=== PATIENT | male | born 1950 | race Caucasian/White ===

== ENCOUNTER 2017-04-22 06:07 | Inpatient (IN) ==
[2017-04-22] MEDS ORDERED: Vancomycin 1,750 MG in D5% in Water 500 ML IVPB ONE ×2 (06:26→20:00)
[2017-04-22] MEDS ORDERED: Albuterol 2.5 MG/3 ML NEBULIZER IH ONE (06:26)
[2017-04-22] MEDS ORDERED: CeFAZolin Pre 2,000 MG/100 ML 2,000 MG/100 ML BAG IVPB ONE (06:26)
[2017-04-22] MEDS ORDERED: Heparin 1,000 UNITS/500 mL NS 500 ML ONE (07:14)
--- NOTE | 2017-04-22 07:15 | Anesthesia Evaluation PreOp ---
Date of Encounter: 04/22/17 Time of Encounter: 07:13 - Past History Planned Operation: Right CEA Cardiac History: CHF, HTN, Hyperlipidemia, Other (CAD) Pulmonary History: Smoker, Pack/yr (1.5 ppd) ASSOCIATE CHEMIST History: Denies Any Significant HX Other Medical History: Renal (Stones), Diabetes Type II, Other (RA) Anesthesia History: No Prior Anesthetic Complications, Past Anesthesia (Appy) Alcohol Use: rarely Drug use: none Medications and Allergies Budesonide/Formoterol 160/4.5 [Symbicort 160/4.5] 1 puff IH BIDR 03/10/17 [ History] GlipiZIDE [Glipizide Xl] 10 mg PO DAILY 03/10/17 [History] Isosorbide DInitrate [Isosorbide Dinitrate] 10 mg PO DAILY 03/10/17 [History] Lisinopril [Zestril] 20 mg PO DAILY 03/10/17 [History] Metoprolol [Lopressor] 100 mg PO BID 03/10/17 [History] Spironolactone [Aldactone] 50 mg PO DAILY 03/10/17 [History] Terazosin [Hytrin] 10 mg PO HS 03/10/17 [History] Tiotropium [Spiriva] 18 mcg IH 0700 03/10/17 [History] Aspirin 81 mg PO DAILY 03/11/17 [Rx] Atorvastatin [Lipitor] 80 mg PO HS #30 tablet 03/11/17 [Rx] Clopidogrel [Plavix] 75 mg PO DAILY #30 tab 03/11/17 [Rx] Metformin HCl [Metformin HCl ER] 500 mg PO BID #0 03/11/17 [Rx] Nicotine Patch [Nicoderm] 21 mg TD DAILY #30 03/11/17 [Rx] Nitroglycerin 0.4 mg SL ONCE #30 tab.subl 03/11/17 [Rx] 3 Allergy/AdvReac Type Severity Reaction Status Date / Time Sulfa (Sulfonamide Allergy Fever Verified 01/22/17 14:12 Antibiotics) - Meds/Allergy Pre-op Review Medications Reviewed: Yes Allergies Reviewed: Yes Beta Blockers on Current Med List: Yes If Beta Blockers taken, Date/Time (Last Dose taken): 05:30 04/22/17 Anesthesia Results - Labs Laboratory Tests 04/20/17 04/20/17 04/20/17 11:53 11:53 11:53 WBC 11.6 H Hgb 13.3 Hct 39.9 Plt Count 214 INR 0.9 Sodium 139 Potassium 5.0 H Chloride 106 Carbon Dioxide 25 BUN 17 Creatinine 1.14 Name: Chino Garcia Date of Study: 03/10/2017 LEFT HEART CATH PTCA Single Major Vessel - circumflex PTCA/Stent (JOSEPHINE) Single Major Vessel - RCA Impressions: There is severe two vessel coronary artery disease. The left ventricle is normal and has normal contractility EF 60% Patient had successful PTCA/Drug-Eluting Stent placement in the mid RCA. Patient had successful PTCA in the mid Circ. Acceptable intermediate risk for intermediate risk vascular surgery If able, would delay carotid surgery for 1 month (needs DAPT x 1 year). Echocardiogram Date of Study: 01/22/2017 Impressions: Technically suboptimal due to poor sound wave transmission. Overall LV function grossly normal. LVEF 60-65%. Cannot exclude subtle wall motion abnormalities due to technical limitations of study. Mild concentric LVH. Trace aortic regurgitation. No pulmonary hypertension. Valves not well visualized. Left Ventricular Wall Motion: Rest Echo Findings All wall segments showed normal motion. Findings: Study Quality * Technically sub-optimal due to COPD. ECG Findings * Normal sinus rhythm. Left Ventricle * LVEF 60-65%. * Normal LV chamber size and function. * Overall LV function appears grossly normal. Cannot exclude subtle wall motion abnormalities due to techinical limitations of study - Imaging EKG: image reviewed (SINUS BRADYCARDIA WITH FIRST DEGREE AV BLOCK NONSPECIFIC ST & T-WAVE ABNORMALITY) Anesthesia Exam O2 Sat Height 1.73 m Height 1.73 m Height 1.73 m Weight 113.398 kg Weight 113.398 kg Weight 113.398 kg O2 Sat by Pulse Oximetry 97 O2 Sat by Pulse Oximetry 97 Vital Signs Temp Pulse Resp BP Pulse Ox 97.7 F 62 18 156/61 97 04/22/17 06:32 04/22/17 06:32 04/22/17 06:32 04/22/17 06:32 04/22/17 06:32 Blood glucose: 97 Height: 5'8'' Weight: 250# NPO (# of Hours): > 8 hrs Pain Scale: 0 Pain Scale Used: Numeric (1 - 10) - HEENT Pupil (Motor): Pupils equal, EOMI Mallampati: III Teeth: Poor dentition Oral Opening: Greater than 3 - ASSOCIATE CHEMIST ASSOCIATE CHEMIST Motor: Normal RUE, Normal LUE, Normal RLE, Normal LLE, Normal Face ASSOCIATE CHEMIST Sensory: Normal: RUE, LUE, RLE, LLE, Face - Cardiac Rhythm: Regular Murmur: None JVD: No Carotid Bruit: No - Pulmonary Breath Sounds: bilateral Clear Respiratory Effort: Symmetrical Anesthesia Assess/Plan ASA Score: 4 Modified [place] Scale for Level of Consciousness: Cooperative, oriented, and tranquil Anesthetic Plan: General Autologous Blood: Yes Monitoring Plan: Standard Monitors, A-Line Recovery Plan: PACU
[2017-04-22] MEDS ORDERED: Heparin 1,000 UNITS/500 mL NS 1,500 ML ONE (07:21)
[2017-04-22] MEDS ORDERED: Bupivacaine-MPF 0.25% 10 ML VIAL ONE (07:21)
[2017-04-22] MEDS ORDERED: Protamine Sulfate 50 MG/5 ML VIAL IVP ONE (07:21)
[2017-04-22] MEDS ORDERED: *HR* Propofol 200 MG/20 ML VIAL IVP ONE (07:28)
[2017-04-22] MEDS ORDERED: *HR* Midazolam HCl 5 MG/5 ML VIAL IVP ONE (07:28)
[2017-04-22] MEDS ORDERED: Ketamine *HR* 500 MG/10 ML MDV ONE (07:28)
[2017-04-22] MEDS ORDERED: Acetaminophen IV 1,000 MG/100 ML INFUS..BTL ONE (07:28)
[2017-04-22] MEDS ORDERED: Lidocaine -MPF 2% 2 ML VIAL ONE (07:30)
[2017-04-22] MEDS ORDERED: *HR* Succinylcholine 200 MG/10 ML VIAL IVP ONE (07:33)
[2017-04-22] MEDS ORDERED: Dexmedetomidine HCl 200 MCG/50 ML MLS IVC ONE (07:33)
--- NOTE | 2017-04-22 07:33 | History & Physical Report ---
Date of Encounter: 04/22/17 Time of Encounter: 07:28 24 Hour HP Update - Instructions Instructions: If the History and Physical is less than 30 days old and was completed prior to A.M. admission and or procedure and has NOT been updated on calendar day of procedure please complete this update prior to performing procedure. - Update Patient reports changes in Medical Condition: No Changes in examination, assessment, or condition: No Changes in Medication: No Preop tests/diagnostics Reviewed: Yes Surgery Remains Indicated: Yes Consent for Planned Operative Procedure(s) Verified: Yes - Pre-Operative Checklist Preoperative Checklist Indicated: Yes Prophylactic Antibiotic Ordered: Yes (vancomycin due to MRSA risk) Home Medications Include Beta Grady: Yes Beta Grady Taken Today (Day of Surgery): Yes Beta Grady Taken Yesterday (Day Prior to Surgery): Yes Is VTE Prophylaxis Indicated?: Yes
[2017-04-22] MEDS: Ringers Solution, Lactated 1,000 ML IVC SCH ×2 (07:35→09:49)
[2017-04-22] MEDS ORDERED: Lidocaine -MPF 4% 5 ML AMPUL ONE (07:37)
[2017-04-22] MEDS ORDERED: Dexamethasone 4 MG/ML VIAL ONE (08:11)
[2017-04-22] MEDS ORDERED: Ondansetron 4 MG/2 ML VIAL ONE (08:11)
[2017-04-22] MEDS ORDERED: *HR* Phenylephrine 10 MG/ML VIAL ONE (08:16)
[2017-04-22] MEDS ORDERED: *HR* Magnesium Sulfate 1 GM/2 ML VIAL ONE (08:39)
[2017-04-22] MEDS ORDERED: Plasma-Lyte A (PH 7.4) 1,000 ML IVC SCH (08:45)
[2017-04-22] MEDS ORDERED: *HR* Heparin 5,000 UNIT/ML VIAL ONE ×2 (09:10→09:58)
[2017-04-22] MEDS ORDERED: *HR* HYDROmorphone (PF) 1 MG/ML SYRINGE IVP PRN (09:51)
[2017-04-22] MEDS ORDERED: *HR* Labetalol 20 MG/4 ML SYRINGE IVP PRN ×2 (09:51→12:41)
[2017-04-22] MEDS ORDERED: *HR* Promethazine 25 MG/ML VIAL IVP PRN (09:51)
--- NOTE | 2017-04-22 11:13 | Operative Note ---
Date of procedure: 04/22/17 Pre-op diagnosis: 80-99% Right internal carotid artery stenosis Post-op diagnosis: same Procedure: Right carotid endarterectomy with hemashield patch angioplasty Complications: None Anesthesia: MORRISA Surgeon: Wes Leon Estimated blood loss (cc): 100 Specimen: Right carotid plaque Condition: stable Disposition: PACU Procedure in Detail: Indications: The patient is a 66 year old male who was found to have an 80-99% right internal carotid artery stenosis by CT angiography. He also has a chronic left internal carotid artery dissection. A right carotid endarterectomy was recommended to reduce his risk of stroke. Procedure: The patient was identified in the preoperative area. The risks, benefits, and alternatives of the procedure were discussed and all questions were answered. The patient was then taken to the operating room and placed in supine position on the operating table. After induction of general endotracheal anesthesia, the patient was cleaned and draped in normal sterile fashion. A longitudinal incision was made anterior to his right sternocleidomastoid muscle. Hemostasis was obtained via electrocautery. Through a process of blunt , sharp, and electrocautery dissection, the platysma was traversed. The jugular vein was identified and dissected along the medial border The facial vein was dissected circumferentially. It was then clamped, divided, tied off with a 2-0 silk suture ligature. The jugular vein was retracted, exposing the carotid bifurcation. The patient received 2000 units of heparin intravenously at this time. Proximal dissection of the common and external carotid arteries were performed circumferentially. Dissection of the internal carotid was performed circumferentially. Vessels loops were passed around the internal and external carotid and an umbilical tape was passed from the common carotid artery. The patient received additional 3000 units of heparin intravenously. After waiting adequate time for the heparin to circulate, the vessels were occluded and a longitudinal arteriotomy was made into the common carotid artery extending into the internal carotid beyond the plaque. Vigorous pulsatile retrograde flow was noted from the internal carotid artery upon release of the loop. Given the evidence of adequate retrograde circulation, the decision to not place a shunt in the tortuous internal carotid artery was made. A dental [place] was used to perform a standard endarterectomy. Proximal and distal endpoints were inspected. No elevated flaps were noted. A Hemashield patch was cut to fit the defect and sutured in place with running 6 -0 Prolene. Prior to completing the closure, each vessel was flushed and then reoccluded. Heparinized saline was infused into the lumen. The patch was completed. Flow was restored in the external carotid artery, followed the common carotid artery, lastly the internal carotid artery was opened. A low resistance arterialized signal was present within the internal carotid artery beyond the patch. Thrombin and Gelfoam were used to aid in hemostasis. Meticulous hemostasis was obtained throughout the wound with electrocautery. Platelet rich and platelet poor plasma were infused into the wounds. The sternocleidomastoid was reapproximated with interrupted 3-0 Vicryl. Platelet rich and platelet poor plasma were infused into the wound. A TLS drain was brought through a separate stab incision and sutured in place with 0 silk suture. The platysma was reapproximated with running 3-0 Vicryl. Local anesthetic was infused in the skin. A 3-0 Monocryl was used to reapproximate his skin. Sterile dressing was applied. The patient was then extubated, taken to the recovery room in stable condition.
--- NOTE | 2017-04-22 11:58 | Anesthesia Evaluation Post Op ---
Date of Encounter: 04/22/17 Time of Encounter: 11:58 - Vital Signs Vital Signs: Vital Signs/O2 Sat, Most Current Temp Pulse Resp BP Pulse Ox 98.2 F 58 16 119/52 96 04/22/17 11:46 04/22/17 11:46 04/22/17 11:46 04/22/17 11:46 04/22/17 11:46 - Lungs Lungs: Clear Ascult./Percussion - Airway Airway: Non-obstructed - Cardiovascular Regular Rate - Mental Status Mental Status: Alert & Oriented, Answers Appropriately - Pain Pain Scale: 0 Pain Scale used: Numeric (1 - 10) - Nausea Vomiting Nausea Vomiting: Not Present - Hydration Hydration: Ice chips, Alvarez catheter - Discharge PostOp Status: Transfer Patient to floor
[2017-04-22] MEDS ORDERED: Acetaminophen 325 MG TABLET PO PRN (12:41)
[2017-04-22] MEDS ORDERED: Naloxone 0.4 MG/ML INJ IVP PRN (12:41)
[2017-04-22] MEDS ORDERED: D5% in Water 1,000 ML IVC PRN (12:41)
[2017-04-22] MEDS ORDERED: Dextrose Gel 15 GM PO PRN ×2 (12:41)
[2017-04-22] MEDS ORDERED: Furosemide 20 MG TABLET PO PRN (12:41)
[2017-04-22] MEDS ORDERED: *HR* OxyCODONE Immed Rel 5 MG TABLET PO PRN (12:41)
[2017-04-22] MEDS ORDERED: *HR* Dextrose 50 % in Water (Syg) 50 ML SYRINGE IVP PRN (12:41)
[2017-04-22] MEDS ORDERED: Ondansetron 4 MG/2 ML VIAL IVP PRN (12:41)
[2017-04-22] MEDS ORDERED: Nitroglycerin 0.4 MG TAB.SUBL SL PRN (12:41)
[2017-04-22] MEDS ORDERED: *HR* Morphine 2 MG/ML SYRINGE IVP PRN (12:41)
[2017-04-22] MEDS: *HR* Metoprolol 5 MG/5 ML VIAL IVP SCH ×3 (15:03→23:44)
[2017-04-22] MEDS: ceFAZolin 2,000 MG in D5% in Water 100 ML IVPB SCH ×2 (15:04→22:15)
[2017-04-22] MEDS: Insulin LISPRO 300 UNITS/3 ML VIAL SQ SCH ×2 (15:04→17:34)
--- NOTE | 2017-04-22 17:34 | Event Note ---
Date of Encounter: 04/22/17 Time of Encounter: 17:00 The patient is seen and examined in his room. He was seen earlier due to the fact that his TLS drain stopped working. Multiple maneuvers were made to restore function. However, the drain appeared to be clotted. The patient has subcutaneous, nonpulsatile swelling in the right neck. He has no tracheall deviation, no stridor and no swallowing difficulties. His speech is normal and he is tolerating his diet. He remains alert without focal neuologic deficits. The swelling does not appear to have increased during the last few hours. Will continue with elevation of his head and an ice pack to his right neck. Will hold heparin due to bleeding risk.
[2017-04-22] MEDS: Budesonide/Formoterol 160/4.5 MDI IH SCH (20:17)
[2017-04-22] MEDS ORDERED: Insulin LISPRO 300 UNITS/3 ML VIAL SQ SCH (21:00)
[2017-04-23] MEDS: *HR* Metoprolol 5 MG/5 ML VIAL IVP SCH (05:10)
[2017-04-23] MEDS ORDERED: *HR* Heparin 5,000 UNIT/ML VIAL SQ SCH ×2 (06:00)
[2017-04-23] MEDS ORDERED: Tiotropium 18 MCG inhalation IH SCH (07:00)
--- NOTE | 2017-04-23 07:00 | Discharge Summary ---
Date of Encounter: 04/23/17 Time of Encounter: 07:40 - Discharge Diagnosis (1) Carotid stenosis, bilateral Priority: Primary Status: Chronic Comments: The patient is postoperative day #1 after a right carotid endarterectomy. He is alert and comfortable. He has no neurologic deficits. He is tolerating his diet. He has non-pulsatile right neck swelling with expected postoperative ecchymosis due to his clopidogrel. He will be discharged today. He was advised that bruising after the procedure is expected. (2) Tobacco abuse Priority: Secondary Status: Acute Comments: He was counseled regarding smoking cessation. (3) COPD (chronic obstructive pulmonary disease) Priority: Secondary Status: Chronic Qualifiers: COPD type: emphysema Emphysema type: panlobular Qualified Code(s): J43.1 - Panlobular emphysema (4) Diabetes mellitus type 2 in obese Priority: Secondary Status: Chronic (5) Essential hypertension Priority: Secondary Status: Chronic Comments: He was counseled regading atherosclerotic risk factor reduction. (6) Mixed hyperlipidemia Priority: Secondary Status: Chronic (7) Morbid obesity due to excess calories Priority: Secondary Status: Chronic (8) Coronary artery disease involving pilot station heart without angina pectoris Priority: Secondary Status: Chronic Qualifiers: Coronary Disease-Associated Artery/Lesion type: pilot [place] artery Qualified Code(s): I25.10 - Atherosclerotic heart disease of pilot [place] coronary artery without angina pectoris (9) CHF, chronic Priority: Secondary Status: Chronic Comments: The patient has a history of CHF. He did not experience any acute symptoms during this hospitalization. Qualifiers: Congestive heart failure type: diastolic Qualified Code(s): I50.32 - Chronic diastolic (congestive) heart failure - Discharge Medications Prescriptions: Oxycodone HCl/Acetaminophen [Percocet 5-325 mg Tablet] 1 each PO Q6H PRN #25 tablet PRN Reason: postoperative pain Home Medications: Budesonide/Formoterol 160/4.5 [Symbicort 160/4.5] 2 puff IH BIDR 03/10/17 [ History] Isosorbide DInitrate [Isosorbide Dinitrate] 10 mg PO DAILY 03/10/17 [History] Lisinopril [Zestril] 20 mg PO DAILY 03/10/17 [History] Metoprolol [Lopressor] 100 mg PO TID 03/10/17 [History] Spironolactone [Aldactone] 50 mg PO DAILY 03/10/17 [History] Terazosin [Hytrin] 10 mg PO HS 03/10/17 [History] Tiotropium [Spiriva] 18 mcg IH 0700 03/10/17 [History] Aspirin 81 mg PO DAILY 03/11/17 [Rx] Atorvastatin [Lipitor] 80 mg PO HS #30 tablet 03/11/17 [Rx] Clopidogrel [Plavix] 75 mg PO DAILY #30 tab 03/11/17 [Rx] Metformin HCl [Metformin HCl ER] 500 mg PO BID #0 03/11/17 [Rx] Nicotine Patch [Nicoderm] 21 mg TD DAILY #30 03/11/17 [Rx] Nitroglycerin 0.4 mg SL ONCE #30 tab.subl 03/11/17 [Rx] Furosemide [Lasix] 20 mg PO DAILY PRN 04/22/17 [History] GlipiZIDE XL (24 HR) [Glucotrol XL] 10 mg PO BID 04/22/17 [History] Oxycodone HCl/Acetaminophen [Percocet 5-325 mg Tablet] 1 each PO Q6H PRN #25 tablet 04/23/17 [Rx] Allergies/Adverse Reactions: 3 Allergy/AdvReac Type Severity Reaction Status Date / Time Sulfa (Sulfonamide AdvReac Fever Verified 04/22/17 08:16 Antibiotics) Date of admission: 04/22/17 12:25 Primary care physician: Trey Donald MD Procedure(s) Performed: Right carotid endarterectomy Discharging clinician: Wes Leon Anticipated date of discharge: 04/23/17 - Patient Status Disposition: Home, Self-Care Condition: Good Functional capacity at discharge: independent ambulation Overall status at discharge: patient is progressing back to baseline - Discharge Instructions Instructions: Oxycodone/Acetaminophen (By mouth), Carotid Endarterectomy (DC) Follow Up With: Wes Leon MD [Partnered Physician] - 05/31/17 1:00 pm Trey Donald MD [Primary Care Provider] - 04/28/17 10:15 am Additional Instructions: May remove bandage and shower 04/24/17. Wash wound gently and pat to dry. Apply dry gauze to wound as needed if drainage occurs. No driving for [address] Leon at [phone] with questions or concerns. - Diet and Activity Activity: increase activity as tolerated Diet: advance to your usual diet - Hospital Course Hospital course: Mr. Garcia is a 66 year old male who underwent a right carotid endarterectomy on 04/22/17. He tolerated the procedure well. In the postoperative period his drain stopped working and he developed right neck subcutaneous swelling. He had no neurologic changes and no tracheal deviation. On postoperative day #1, his swelling had decreased and he remained neurologically intact. He did developed expected periincisional echymosis due to his plavix use. He was informed that the ecchymosis will likely increase and spread to his chest in the next few days. He was discharged to home in stable condition on postoperative day #1 without complications. Time spent discussing smoking cessation with patient: 3 to 10 minutes - Time Spent with Patient Total time spent providing and/or coordinating discharge services: Exam Vital Signs, Last 4 Hours Temp Pulse Resp BP Pulse Ox 04/23/17 05:11 97.5 F L 67 17 148/76 96 General: Present: Conversant, No Apparent Distress HEENT: Present: Trachea midline, Pupils equal, Other (incision clean, dry and intact wihout erythema or drainage, nonpulsatile right neck swelling with expected ecchymosis) Neck: Absent: JVD, Midline deformity, Tracheal deviation Cardiac: Present: Reg Rate and Rhythm, Normal S1 and S2 Lungs: Present: Normal Breath Sounds Neuro: Present: Alert and responsive, No focal deficits noted, Motor nerves grossly intact, Sensory nerves grossly intact Abdomen: Present: Soft, Non-tender Vascular: Present: Normal capillary refill. Absent: Cyanosis, Edema Skin: Present: No rashes noted on visualized skin - VTE Documentation of Mechanical Device: Intermittent pneumatic compression device
[2017-04-23 07:29] VITALS: BP 105/77
[2017-04-23] MEDS: Insulin LISPRO 300 UNITS/3 ML VIAL SQ SCH ×2 (07:34→12:13)
[2017-04-23] MEDS: Budesonide/Formoterol 160/4.5 MDI IH SCH (07:53)
[2017-04-23] MEDS ORDERED: Metoprolol 100 MG TABLET PO SCH (09:00)
[2017-04-23] MEDS ORDERED: Nicotine 21 MG PATCH.TD24 TD SCH (09:00)
[2017-04-23] MEDS ORDERED: Aspirin 81 MG TAB.CHEW PO SCH (09:00)
[2017-04-23] MEDS ORDERED: Lisinopril 20 MG TABLET PO SCH (09:00)
== END 2017-04-23 14:50 | disposition home or self-care (01) | DRG 37 ==
LOC: SAMDAY 06:07 → 2NNU 12:25
PROVIDERS: ADMIT Surgery; ATTEND Surgery

== ENCOUNTER 2022-05-03 19:47 | Inpatient (IN) ==
[2022-05-03] MEDS ORDERED: Ipratropium/Albuterol Neb 3 ML IH ONE (20:50)
[2022-05-03] MEDS ORDERED: Aspirin 325 MG TABLET PO ONE (20:50)
[2022-05-03] MEDS ORDERED: Nitroglycerin 0.4 MG TAB.SUBL SL PRN (20:50)
[2022-05-03 20:54] LABS: Basophils % 0.2 %; Eosinophils # 0.3 K/mcL (0.0-0.6); Eosinophils % 1.8 %; Hematocrit 30.3 % (37.5-50.1); Hemoglobin 10.1 g/dL (12.9-16.9); Immature Granulocytes % 0.4 % (0-4); Lymphocytes # 2.6 K/mcL (0.6-4.6); Lymphocytes % 18.5 %; Mean Corpuscular HGB Conc 33.3 g/dL (31.6-35.5); Mean Corpuscular Hemoglobin 31.1 pg (28.0-33.3); Mean Corpuscular Volume 93.2 fL (83.0-100.0); Mean Platelet Volume 10.6 fL (9.4-12.4); Monocytes # 1.2 K/mcL (0.0-1.3); Monocytes % 8.4 %; Neutrophils # 10.1 K/mcL (1.6-8.9); Platelet Count 229 K/mcL (140-400); Red Blood Count 3.25 M/mcL (4.19-5.50); Red Cell Distribution Width 13.1 % (11.5-14.5); Segmented Neutrophils % 70.7 %; White Blood Count 14.2 K/mcL (4.3-11.1)
[2022-05-03 21:23] LABS: Calcium 9.1 mg/dL (8.6-10.3); Potassium 3.4 mEq/L (3.5-5.1)
[2022-05-03 21:25] LABS: Troponin I 0.04 ng/mL (< 0.04)
[2022-05-03] MEDS ORDERED: 0.9 % Sodium Chloride 1,500 ML IV ONE (22:02)
[2022-05-03 22:28] LABS: Influenza A PCR Negative (Negative); Influenza B PCR Negative (Negative); Resp. Syncytial Virus PCR Negative (Negative)
[2022-05-03 22:29] LABS: SARS-CoV-2 by PCR (In House) Negative (Negative)
[2022-05-03] MEDS ORDERED: Iopamidol - 370 500 ML MLS IVP ONE (22:46)
[2022-05-03] MEDS ORDERED: *HR* Heparin 5,000 UNIT/ML VIAL IVP ONE (23:11)
[2022-05-03] MEDS ORDERED: *HR* Heparin 5,000 UNIT/ML VIAL IVP PRN ×2 (23:11)
[2022-05-04 00:07] LABS: VBG HCO3 18 mEq/L (21-27); VBG PCO2 42 mmHg (41-51); VBG PH 7.24 pH Units (7.32-7.42); VBG PO2 44 mmHg (25-50)
[2022-05-04 00:22] LABS: Hematocrit 27.7 % (37.5-50.1); Hemoglobin 9.2 g/dL (12.9-16.9); Mean Corpuscular HGB Conc 33.2 g/dL (31.6-35.5); Mean Corpuscular Hemoglobin 31.2 pg (28.0-33.3); Mean Corpuscular Volume 93.9 fL (83.0-100.0); Mean Platelet Volume 10.9 fL (9.4-12.4); Platelet Count 212 K/mcL (140-400); Red Blood Count 2.95 M/mcL (4.19-5.50); Red Cell Distribution Width 13.2 % (11.5-14.5); White Blood Count 13.5 K/mcL (4.3-11.1)
[2022-05-04 00:23] LABS: Heparin anti-factor XA UFH < 0.04 IU/mL (0.30-0.70); INR 0.9; Prothrombin Time 10.4 Seconds (9.4-12.1)
[2022-05-04 00:58] LABS: Adenovirus Not Detected (Not Detect); Bordetella Pertussis Not Detected (Not Detect); Chlamydophila pneumoniae Not Detected (Not Detect); Coronavirus 229E Not Detected (Not Detect); Coronavirus HKU1 Not Detected (Not Detect); Coronavirus NL63 Not Detected (Not Detect); Coronavirus OC43 Not Detected (Not Detect); Human Metapneumovirus Not Detected (Not Detect); Human Rhinovirus/Enterovirus Not Detected (Not Detect); Influenza A Subtype 2009 H1 Not Detected (Not Detect); Influenza B Not Detected (Not Detect); Mycoplasma pneumoniae Not Detected (Not Detect); Parainfluenza Virus 1 Not Detected (Not Detect); Parainfluenza Virus 2 Not Detected (Not Detect); Parainfluenza Virus 3 Not Detected (Not Detect); Parainfluenza Virus 4 Not Detected (Not Detect); Respiratory Syncytial Virus Not Detected (Not Detect); SARS-CoV-2 Not Detected (Not Detect)
[2022-05-04] MEDS ORDERED: Azithromycin 500 MG in 0.9 % Sodium Chloride 250 ML IVPB ONE (00:58)
[2022-05-04] MEDS ORDERED: cefTRIAXone 1,000 MG in 0.9 % Sodium Chloride Mini Bag 100 ML IVPB ONE (00:58)
[2022-05-04] MEDS: Heparin 25,000UNIT/250ML 1/2NS 25,000 UNIT/250 ML IV.SOLN IVC SCH ×2 (02:03→21:00)
[2022-05-04 02:27] LABS: Albumin 3.5 g/dL (3.5-5.7); Albumin/Globulin Ratio 1.5 (1.1-2.2); Bilirubin,Direct 0.1 mg/dL (0.0-0.2); Bilirubin,Indirect 0.3 mg/dL (0.0-1.0); Bilirubin,Total 0.4 mg/dL (0.3-1.0); Globulin 2.3 g/dL (2.4-3.5); Total Protein 5.8 g/dL (6.4-8.9)
[2022-05-04] MEDS ORDERED: Acetaminophen 325 MG TABLET PO PRN (03:13)
[2022-05-04] MEDS ORDERED: Naloxone 0.4 MG/ML INJ IVP PRN (03:13)
[2022-05-04] MEDS ORDERED: *HR* Dextrose 50 % in Water (Syg) 50 ML SYRINGE IVP PRN (03:13)
[2022-05-04] MEDS ORDERED: Ondansetron 4 MG/2 ML VIAL IVP PRN (03:13)
[2022-05-04] MEDS ORDERED: D5% in Water 1,000 ML IVC PRN (03:13)
[2022-05-04] MEDS ORDERED: Dextrose Gel 15 GM/37.5 ML TUBE PO PRN ×2 (03:13)
[2022-05-04] MEDS ORDERED: Albuterol 2.5 MG/3 ML NEBULIZER IH PRN (04:30)
[2022-05-04 04:55] LABS: Basophils % 0.2 %; Eosinophils % 0.3 %; Hematocrit 28.2 % (37.5-50.1); Hemoglobin 9.2 g/dL (12.9-16.9); Immature Granulocytes % 0.3 % (0-4); Lymphocytes # 1.5 K/mcL (0.6-4.6); Lymphocytes % 11.5 %; Mean Corpuscular HGB Conc 32.6 g/dL (31.6-35.5); Mean Corpuscular Hemoglobin 30.9 pg (28.0-33.3); Mean Corpuscular Volume 94.6 fL (83.0-100.0); Mean Platelet Volume 10.9 fL (9.4-12.4); Monocytes # 1.2 K/mcL (0.0-1.3); Monocytes % 9.1 %; Neutrophils # 10.5 K/mcL (1.6-8.9); Platelet Count 221 K/mcL (140-400); Red Blood Count 2.98 M/mcL (4.19-5.50); Red Cell Distribution Width 13.3 % (11.5-14.5); Segmented Neutrophils % 78.6 %; White Blood Count 13.3 K/mcL (4.3-11.1)
[2022-05-04 05:03] LABS: Prothrombin Time 11.4 Seconds (9.4-12.1)
[2022-05-04 05:04] LABS: Heparin anti-factor XA UFH 0.44 IU/mL (0.30-0.70)
[2022-05-04 05:06] LABS: Activated Partial Thrombo Time 61.6 Seconds (26.0-36.0)
[2022-05-04 05:13] LABS: BUN/Creatinine Ratio 18 (6-26); Blood Urea Nitrogen 53 mg/dL (8-23); C-Reactive Protein < 5 mg/L (Less than 10); Calcium 8.3 mg/dL (8.6-10.3); Carbon Dioxide 15 mEq/L (23-29); Chloride 112 mEq/L (98-107); Glucose 128 mg/dL (70-105); Osmolality,Calculated 308 (280-300); Potassium 3.8 mEq/L (3.5-5.1); Sodium 141 mEq/L (136-145)
[2022-05-04 05:39] LABS: Estimated Average Glucose 131 mg/dl; Hemoglobin A1C 6.2 %
[2022-05-04] MEDS: Sodium Bicarbonate 75 MEQ in 0.45 % Sodium Chloride 1,000 ML IVC SCH ×2 (05:45→20:15)
[2022-05-04 05:53] LABS: Bacteria,Urine Few per hpf (None-Few); Bilirubin,Urine Negative (Negative); Blood,Urine Moderate (Negative); Clarity,Urine Clear (Clear); Color,Urine Colorless (Yellow); Glucose,Urine (UA) Normal (Normal); Ketones,Urine Negative (Negative); Leukocyte Esterase,Urine Negative (Negative); Mucus,Urine Few per lpf (None-Few); Nitrite,Urine Negative (Negative); Protein,Urine Trace mg/dL (Neg-Trace); RBC,Urine 0-3 per hpf (0-3); Specific Gravity,Urine 1.007 (1.010-1.025); Squamous Epithelial Cell,Urine Few per hpf (None-Few); Urobilinogen,Urine Normal (Normal); WBC,Urine 0-3 per hpf (0-3)
[2022-05-04] MEDS: Insulin LISPRO 300 UNITS/3 ML VIAL SUBQ SCH ×3 (06:12→18:40)
[2022-05-04] MEDS ORDERED: 0.9 % Sodium Chloride 1,000 ML IVC ONE (08:33)
[2022-05-04] MEDS: Aspirin 81 MG TAB.CHEW PO SCH (08:37)
[2022-05-04] MEDS: Metoprolol 100 MG TABLET PO SCH ×2 (08:37→20:20)
[2022-05-04] MEDS ORDERED: Metoprolol 100 MG TABLET PO SCH (09:00)
[2022-05-04] MEDS ORDERED: Tiotropium 10 INH DOSE IH SCH (10:00)
[2022-05-04] MEDS ORDERED: Ipratropium/Albuterol Neb 3 ML ONE (10:26)
[2022-05-04] MEDS: Budesonide/Formoterol 160/4.5 1 PUFF INH IH SCH ×2 (10:34→20:00)
[2022-05-04] MEDS: Ipratropium/Albuterol Neb 3 ML IH SCH ×5 (10:34→22:45)
[2022-05-04 10:38] LABS: ABG Base Excess -9 mEq/L (-2 to 3); ABG HCO3 17 mEq/L (21-27); ABG Oxygen Saturation 90 % (95-98); ABG PCO2 37 mmHg (35-45); ABG PH 7.27 pH Units (7.32-7.45); ABG PO2 66 mmHg (85-104); ABG TCO2 18 mEq/L (20-26)
[2022-05-04] MEDS: Albumin 25% 25gram/100mL 25 GM/100 ML IV.SOLN IVPB SCH ×2 (13:25→20:18)
[2022-05-04 14:54] LABS: Sodium, Urine 38.7 mEq/L
[2022-05-04 15:27] LABS: Uric Acid 4.2 mg/dL (2.3-7.6)
[2022-05-04 15:48] LABS: Hepatitis B Surface Antigen Nonreactive (Nonreactive)
[2022-05-04 16:17] LABS: Hepatitis C Virus Antibody Nonreactive (Nonreactive)
[2022-05-04 16:18] LABS: Hepatitis A Antibody IgM Nonreactive (Nonreactive); Hepatitis B Core IgM Nonreactive (Nonreactive)
[2022-05-05] MEDS: Insulin LISPRO 300 UNITS/3 ML VIAL SUBQ SCH ×5 (00:48→17:27)
[2022-05-05] MEDS: Ipratropium/Albuterol Neb 3 ML IH SCH ×6 (04:09→23:02)
[2022-05-05] MEDS: Albumin 25% 25gram/100mL 25 GM/100 ML IV.SOLN IVPB SCH (05:27)
[2022-05-05] MEDS: Budesonide/Formoterol 160/4.5 1 PUFF INH IH SCH ×2 (07:26→19:52)
[2022-05-05] MEDS: Aspirin 81 MG TAB.CHEW PO SCH (08:58)
[2022-05-05] MEDS: Metoprolol 100 MG TABLET PO SCH (08:58)
[2022-05-05] MEDS: Sodium Bicarbonate 75 MEQ in 0.45 % Sodium Chloride 1,000 ML IVC SCH ×2 (10:32→23:55)
[2022-05-05 10:42] LABS: Calcium 8.2 mg/dL (8.6-10.3); Potassium 4.2 mEq/L (3.5-5.1)
[2022-05-05] MEDS: Heparin 25,000UNIT/250ML 1/2NS 25,000 UNIT/250 ML IV.SOLN IVC SCH (14:38)
[2022-05-05] MEDS: Nicotine 21 MG PATCH.TD24 TD SCH (15:14)
[2022-05-05] MEDS: Metoprolol XL (24 HR) Succ 50 MG TAB.ER.24H PO SCH (21:16)
[2022-05-05] MEDS: Melatonin 3 MG TABLET PO PRN (21:16)
[2022-05-06] MEDS: Insulin LISPRO 300 UNITS/3 ML VIAL SUBQ SCH ×4 (00:10→19:52)
[2022-05-06] MEDS: Ipratropium/Albuterol Neb 3 ML IH SCH ×3 (04:22→11:13)
[2022-05-06] MEDS: Budesonide/Formoterol 160/4.5 1 PUFF INH IH SCH ×2 (08:07→20:16)
[2022-05-06] MEDS: Aspirin 81 MG TAB.CHEW PO SCH (09:38)
[2022-05-06] MEDS: Nicotine 21 MG PATCH.TD24 TD SCH (09:39)
[2022-05-06] MEDS: Metoprolol XL (24 HR) Succ 50 MG TAB.ER.24H PO SCH ×2 (09:39→20:25)
[2022-05-06 12:12] LABS: Basophils % 0.2 %; Eosinophils # 0.1 K/mcL (0.0-0.6); Eosinophils % 1.4 %; Hemoglobin 8.7 g/dL (12.9-16.9); Immature Granulocytes % 0.2 % (0-4); Lymphocytes # 1.8 K/mcL (0.6-4.6); Lymphocytes % 20.2 %; Mean Corpuscular HGB Conc 33.5 g/dL (31.6-35.5); Mean Corpuscular Hemoglobin 31.2 pg (28.0-33.3); Mean Corpuscular Volume 93.2 fL (83.0-100.0); Mean Platelet Volume 10.8 fL (9.4-12.4); Monocytes # 0.9 K/mcL (0.0-1.3); Monocytes % 10.5 %; Neutrophils # 5.9 K/mcL (1.6-8.9); Platelet Count 185 K/mcL (140-400); Red Blood Count 2.79 M/mcL (4.19-5.50); Red Cell Distribution Width 13.2 % (11.5-14.5); Segmented Neutrophils % 67.5 %; White Blood Count 8.7 K/mcL (4.3-11.1)
[2022-05-06 12:21] LABS: Calcium 8.5 mg/dL (8.6-10.3); Magnesium 1.3 mg/dL (1.6-2.6); Phosphorous 2.8 mg/dL (2.7-4.5); Potassium 3.6 mEq/L (3.5-5.1)
[2022-05-06] MEDS ORDERED: Ipratropium/Albuterol Neb 3 ML IH PRN (14:03)
[2022-05-06] MEDS: Sodium Bicarbonate 75 MEQ in 0.45 % Sodium Chloride 1,000 ML IVC SCH (14:24)
[2022-05-06] MEDS: *HR* Heparin 5,000 UNIT/ML VIAL SQ SCH (18:32)
[2022-05-06] MEDS: Melatonin 3 MG TABLET PO PRN (20:25)
[2022-05-07] MEDS: Insulin LISPRO 300 UNITS/3 ML VIAL SUBQ SCH ×4 (02:07→17:22)
[2022-05-07] MEDS: *HR* Heparin 5,000 UNIT/ML VIAL SQ SCH ×2 (05:02→17:53)
[2022-05-07] MEDS: Sodium Bicarbonate 75 MEQ in 0.45 % Sodium Chloride 1,000 ML IVC SCH ×2 (05:02→20:51)
[2022-05-07] MEDS: Heparin 25,000UNIT/250ML 1/2NS 25,000 UNIT/250 ML IV.SOLN IVC SCH (07:29)
[2022-05-07] MEDS: Budesonide/Formoterol 160/4.5 1 PUFF INH IH SCH ×2 (07:46→21:34)
[2022-05-07] MEDS: Aspirin 81 MG TAB.CHEW PO SCH (09:06)
[2022-05-07] MEDS: Nicotine 21 MG PATCH.TD24 TD SCH (09:06)
[2022-05-07] MEDS: Metoprolol XL (24 HR) Succ 50 MG TAB.ER.24H PO SCH ×2 (09:06→20:53)
[2022-05-07] MEDS ORDERED: *HR* LORazepam 2 MG/ML VIAL IVP ONE (11:10)
[2022-05-07 13:01] LABS: Hematocrit 27.2 % (37.5-50.1); Hemoglobin 9.2 g/dL (12.9-16.9); Mean Corpuscular HGB Conc 33.8 g/dL (31.6-35.5); Mean Corpuscular Hemoglobin 30.9 pg (28.0-33.3); Mean Corpuscular Volume 91.3 fL (83.0-100.0); Mean Platelet Volume 11.4 fL (9.4-12.4); Platelet Count 194 K/mcL (140-400); Red Blood Count 2.98 M/mcL (4.19-5.50); Red Cell Distribution Width 13.4 % (11.5-14.5); White Blood Count 8.4 K/mcL (4.3-11.1)
[2022-05-07 13:03] LABS: Calcium 8.6 mg/dL (8.6-10.3); Magnesium 1.8 mg/dL (1.6-2.6)
[2022-05-07] MEDS ORDERED: traZODone 50 MG TABLET PO PRN (20:30)
[2022-05-07] MEDS: Melatonin 3 MG TABLET PO PRN (20:53)
[2022-05-08] MEDS: Insulin LISPRO 300 UNITS/3 ML VIAL SUBQ SCH ×5 (00:13→23:43)
[2022-05-08] MEDS ORDERED: QUEtiapine Fumarate 25 MG TABLET PO ONE (01:44)
[2022-05-08] MEDS: *HR* Heparin 5,000 UNIT/ML VIAL SQ SCH (05:13)
[2022-05-08 05:23] LABS: Hematocrit 30.5 % (37.5-50.1); Hemoglobin 9.8 g/dL (12.9-16.9); Mean Corpuscular HGB Conc 32.1 g/dL (31.6-35.5); Mean Corpuscular Hemoglobin 30.5 pg (28.0-33.3); Mean Platelet Volume 11.5 fL (9.4-12.4); Platelet Count 188 K/mcL (140-400); Red Blood Count 3.21 M/mcL (4.19-5.50); Red Cell Distribution Width 13.2 % (11.5-14.5); White Blood Count 9.9 K/mcL (4.3-11.1)
[2022-05-08 05:37] LABS: Calcium 9.2 mg/dL (8.6-10.3); Magnesium 1.9 mg/dL (1.6-2.6); Potassium 3.8 mEq/L (3.5-5.1)
[2022-05-08] MEDS: Budesonide/Formoterol 160/4.5 1 PUFF INH IH SCH ×2 (07:39→22:39)
[2022-05-08] MEDS: Aspirin 81 MG TAB.CHEW PO SCH (13:07)
[2022-05-08] MEDS: Nicotine 21 MG PATCH.TD24 TD SCH (13:07)
[2022-05-08] MEDS: Metoprolol XL (24 HR) Succ 50 MG TAB.ER.24H PO SCH ×2 (13:07→21:58)
[2022-05-08] MEDS ORDERED: *HR* LORazepam Oral Conc 2 MG/ML PO PRN (16:27)
[2022-05-08] MEDS ORDERED: Haloperidol Lactate 5 MG/ML VIAL IVP PRN (16:27)
[2022-05-08] MEDS: Sodium Bicarbonate 75 MEQ in 0.45 % Sodium Chloride 1,000 ML IVC SCH (21:59)
[2022-05-08 23:39] VITALS: TEMP 98.2
[2022-05-09 02:05] LABS: Calcium 8.8 mg/dL (8.6-10.3); Potassium 3.6 mEq/L (3.5-5.1)
[2022-05-09] MEDS: Insulin LISPRO 300 UNITS/3 ML VIAL SUBQ SCH ×2 (03:30→11:22)
[2022-05-09] MEDS: Nicotine 21 MG PATCH.TD24 TD SCH (11:21)
[2022-05-09] MEDS: Aspirin 81 MG TAB.CHEW PO SCH (11:21)
[2022-05-09] MEDS: Metoprolol XL (24 HR) Succ 50 MG TAB.ER.24H PO SCH (11:21)
[2022-05-09 12:34] VITALS: BP 186/83; PULSE 69; O2SAT 91
== END 2022-05-09 13:09 | disposition hospice, inpatient (51) | DRG 280 ==
LOC: EMEROOARM 19:47 → SUATTDRO 05-04 02:25 → 3NENU 05-04 02:25 → 2ANU 05-08 18:50
PROVIDERS: ADMIT Internal Medicine; ATTEND Internal Medicine

== ENCOUNTER 2022-05-08 14:34 | Inpatient (IN) ==
[2022-05-09] MEDS: traZODone 50 MG TABLET PO PRN (23:35)
[2022-05-09] MEDS: Metoprolol XL (24 HR) Succ 50 MG TAB.ER.24H PO SCH (23:35)
[2022-05-09] MEDS: *HR* LORazepam Oral Conc 2 MG/ML SL PRN (23:35)
[2022-05-10] MEDS: Haloperidol Lactate 5 MG/ML VIAL IVP PRN ×2 (02:32→10:05)
[2022-05-10] MEDS: Aspirin 81 MG TAB.CHEW PO SCH (08:28)
[2022-05-10] MEDS: Nicotine 21 MG PATCH.TD24 TD SCH (08:28)
[2022-05-10] MEDS: Metoprolol XL (24 HR) Succ 50 MG TAB.ER.24H PO SCH ×2 (08:28→20:51)
[2022-05-10] MEDS: Morphine Sulfate Oral CONC 10 MG/0.5 ML ORAL.SYG SL PRN ×2 (10:04→18:57)
[2022-05-10] MEDS ORDERED: Haloperidol Lactate 5 MG/ML VIAL IVP PRN (10:14)
[2022-05-10] MEDS ORDERED: Haloperidol Lactate 5 MG/ML VIAL IVP SCH (14:00)
[2022-05-10] MEDS: Haloperidol Oral Conc 10 MG/5 ML UDC PO SCH ×2 (14:54→20:51)
[2022-05-11] MEDS: *HR* LORazepam Oral Conc 2 MG/ML SL PRN ×2 (01:23→20:58)
[2022-05-11] MEDS: Haloperidol Oral Conc 10 MG/5 ML UDC PO SCH ×4 (01:23→20:58)
[2022-05-11] MEDS: Nicotine 21 MG PATCH.TD24 TD SCH (08:19)
[2022-05-11] MEDS: Metoprolol XL (24 HR) Succ 50 MG TAB.ER.24H PO SCH ×2 (08:19→20:58)
[2022-05-11] MEDS: Aspirin 81 MG TAB.CHEW PO SCH (08:19)
[2022-05-11] MEDS: traZODone 50 MG TABLET PO PRN (20:58)
[2022-05-11] MEDS ORDERED: Bisacodyl 10 MG RECTAL SUPPOSITORY RC PRN (21:56)
[2022-05-12] MEDS: Haloperidol Oral Conc 10 MG/5 ML UDC PO SCH ×4 (02:45→21:23)
[2022-05-12] MEDS: Nicotine 21 MG PATCH.TD24 TD SCH (08:53)
[2022-05-12] MEDS: Metoprolol XL (24 HR) Succ 50 MG TAB.ER.24H PO SCH ×2 (08:56→19:39)
[2022-05-12] MEDS: Aspirin 81 MG TAB.CHEW PO SCH (08:56)
[2022-05-12] MEDS: Morphine Sulfate 2 MG/ML SYRINGE IVP PRN ×3 (10:10→21:24)
[2022-05-13] MEDS: Haloperidol Oral Conc 10 MG/5 ML UDC PO SCH ×3 (04:23→10:50)
[2022-05-13] MEDS: *HR* LORazepam Oral Conc 2 MG/ML SL PRN ×3 (04:37→20:04)
[2022-05-13] MEDS: Aspirin 81 MG TAB.CHEW PO SCH (06:58)
[2022-05-13] MEDS: Metoprolol XL (24 HR) Succ 50 MG TAB.ER.24H PO SCH ×2 (06:58→19:34)
[2022-05-13] MEDS: Nicotine 21 MG PATCH.TD24 TD SCH (07:54)
[2022-05-13] MEDS ORDERED: Levalbuterol Neb 0.63 MG/3 ML IH PRN (09:27)
[2022-05-13] MEDS: Morphine Sulfate 2 MG/ML SYRINGE IVP PRN ×5 (09:32→23:00)
[2022-05-13] MEDS ORDERED: Hyoscyamine SL 0.125 MG TAB.SUBL SL PRN (11:56)
[2022-05-13] MEDS ORDERED: Scopolamine Patch 1.5 MG PATCH.TD72 TD SCH (12:00)
[2022-05-13] MEDS: Morphine Sulfate Oral CONC 10 MG/0.5 ML ORAL.SYG SL PRN (19:38)
[2022-05-13 19:44] VITALS: BP 191/79; PULSE 105; TEMP 97.5; O2SAT 90
[2022-05-14] MEDS: Morphine Sulfate 2 MG/ML SYRINGE IVP PRN ×2 (01:35→02:50)
== END 2022-05-14 05:45 | disposition expired | DRG 951 ==
LOC: 2ANU 05-09 13:12
PROVIDERS: ADMIT Internal Medicine Hospice and Palliative Medicine; ATTEND Internal Medicine Hospice and Palliative Medicine